=== PATIENT | male | born 2000 | race Caucasian/White ===

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

== ENCOUNTER 2021-05-18 13:38 | Emergency (ER) | payer OTHER, SELFPAY ==
[2021-05-18 13:52] VITALS: BP 144/84; PULSE 109; RESP 16; TEMP 36.8; O2SAT 99
--- NOTE | 2021-05-18 14:02 | W.ED.UPPEXIN ---
HPI - Extremity Injury (Upper) General: Chief Complaint: Wound/Laceration Stated Complaint: R HAND INJURY Time Seen by Provider: 05/18/21 14:00 Source: patient Mode of arrival: ambulatory Limitations: no limitations History of Present Illness: HPI narrative: Patient is a 20-year-old male here for evaluation of a right finger injury. He states injury happened at work when he got the finger caught between a sprocket in a chain. Patient states the finger got caught and patient then jerked the extremity away causing skin laceration. Patient does not complain of numbness, tingling, loss of sensation. Tetanus is UTD. complaint: injury to: right and finger Onset (ago): hour(s) Place: work Severity: moderate Associated symptoms: Reports no associated symptoms Review of Systems Musc: Reports: extremity pain (R 4-5 fingers); Denies: extremity swelling, joint pain or joint swelling Skin/Breast: Reports: other (laceration/skin avulsion R 5th finger) Neuro: Denies: numbness in extremities or sensory changes PFS ED PFSH: Medical History Healthy adult Physical Exam Const: COMMON NORMALS: no acute distress, average body habitus, patient oriented x3, no limitations, healthy appearing, alert and well nourished Extremity: GENERAL: Yes normal exam except as noted OTHER: mild tenderness to R 4-5 fingers; no swelling or bony deformities noted; patient has a skin avulsion/flap to palmar aspect of R 5th finger starting at PIP joint and extending into palmar pad; no degloving injury noted; digit with normal cap refill and sensory; no nail damage Neuro: COMMON NORMALS: patient oriented x3, moves all extremities, no focal motor deficits and no sensory deficits noted SENSORIUM/ORIENTATION: Yes alert Course Vital Signs: Vital signs: Vital Signs Temperature 98.2 F 05/18/21 13:52 Pulse Rate 109 H 05/18/21 13:52 Respiratory Rate 16 05/18/21 13:52 Blood Pressure 144/84 05/18/21 13:52 Pulse Oximetry 99 05/18/21 13:52 MDM - Extremity Injury (Upper) MDM Narrative: Medical decision making narrative: Patient refuses any form of repair/sutures. Wound was soaked in Betadine and irrigated. Avulsed skin will be re-approximated over underlying exposed area and finger will be splinted to keep skin flat. Wound care discussed at home. Discussed how avulsed skin may eventually /slough off. Will place on antibiotics. Tetanus UTD. Will have him follow up with Worker's Comp. Imaging Data^: XR R 4-5 finger: Radiologist's impression: [address] [place] [address] XRay Report Signed Patient: Mateo Prado Unit #: [id number] : 2000 Age/Sex: 20 / M ADM Date: 05/18/21 Loc: ER Room/Bed: Attending Dr: Ordering Provider/Ordering MD: Kristi Whittington Date of Service: 05/18/21 Procedure(s): XR finger RT min 2V 35346 Accession Number(s): [id number] Report Number: [id number] WS: [id number] Exam: XR finger RT min 2V 57508 Date/Time of Exam: 05/18/2021 2:38 PM Reason For Exam: lac 5th digit; XR 4-5 digits The fourth and fifth digits*targeted for radiographic evaluation. No fracture or dislocation. No soft tissue foreign bodies are seen. There appears to be a skin laceration of the distal fifth digit. XR/XR finger RT min 2V 22881 IMPRESSION: 1. No bony injury. 2. Skin laceration of the distal fifth finger. Dictated By: García Moseley DO Signed By: García Moseley DO Signed Date/Time: 05/18/21 1501 DD/ 1457 Discharge Plan Discharge Patient Disposition: Home Clinical Impression: Avulsion of skin of finger without complication Qualifiers: Encounter type: initial encounter Qualified Code(s): S61.209A - Unspecified open wound of unspecified finger without damage to nail, initial encounter Condition: Stable Prescriptions: New cephalexin 500 mg capsule 500 mg PO Q6H 7 Days Qty: 28 RF: 0 No Action naproxen 500 mg tablet 500 mg PO BID PRN (Reason: pain) Qty: 20 RF: 0 Discharge Orders: Discharge ED (Routine); Ordered 05/18/21 Ordered By: Kristi Whittington Referrals: Ayaz Fall MD [Primary Care Provider] - Activity Restrictions/Additional Instructions: As we discussed please keep wound clean with warm soap and water. You have refused any form of repair/sutures today. Please try to keep skin flap covering underlying exposed tissue is much as possible. This may eventually /slough off. Monitor for signs of infection such as redness, swelling, red streaking up your hand/arm, fevers, or any other concerns you may have. Please seek medical evaluation if these occur. Please follow-up with Worker's Comp. as directed. Coding Level of Care Code ED Non Destructive Evaluation Manager for Dolores Acosta
--- NOTE | 2021-05-18 14:16 | XR_ITS ---
WS: [id number] Exam: XR finger RT min 2V [id number] Date/Time of Exam: 05/18/2021 2:38 PM Reason For Exam: lac 5th digit; XR 4-5 digits The fourth and fifth digits*targeted for radiographic evaluation. No fracture or dislocation. No soft tissue foreign bodies are seen. There appears to be a skin lacera tion of the distal fifth digit. XR/XR finger RT min 2V 31202 IMPRESSION: 1. No bony injury. 2. Skin laceration of the distal fifth finger.
== END 2021-05-18 16:30 | disposition home or self-care (01) ==
PROVIDERS: Emergency Provider Physician Assistant; PCP Family Medicine
DX: S61.216A Laceration without foreign body of right little finger without damage to nail, initial encounter (principal); W23.0XXA Caught, crushed, jammed, or pinched between moving objects, initial encounter; Y99.0 Civilian activity done for income or pay
CPT/HCPCS: 29130; 73140; 99282; A6446

== ENCOUNTER 2024-11-27 14:13 | Emergency (ER) | payer SELFPAY ==
[2024-11-27 14:24] VITALS: BP 128/79; PULSE 95; RESP 19; TEMP 36.6; O2SAT 94
--- NOTE | 2024-11-27 14:39 | W.ED.UPPEXIN ---
HPI - Extremity Injury (Upper) General: Chief Complaint: Wound/Laceration Stated Complaint: L hand middle and ring finger lac Time Seen by Provider: 11/27/24 14:37 Source: patient Mode of arrival: ambulatory Limitations: no limitations History of Present Illness: Patient is a 24-year-old male who presents to the ED for evaluation of injuries to his left middle and ring fingers that he sustained just prior to arrival after cutting it on a lawnmower blade. Last tetanus unknown. complaint: injury to: left and finger Onset (ago): hour(s) Other Extremity Injury: Left: hand Other injuries: none Place: home Severity: moderate Relieving factors: none Exacerbating factors: none Context: laceration Associated symptoms: Reports no associated symptoms Related Data Previous Rx's ?Medication ?Instructions ?Recorded mupirocin 2 % topical ointment 1 applic topical TID #22 grams 09/15/22 cephalexin 500 mg capsule 500 mg PO Q6H 7 days #28 caps 11/27/24 hydrocodone 5 mg-acetaminophen 325 1 tab PO Q6H PRN pain #14 tabs 11/27/24 mg tablet Allergies Allergy/AdvReac Type Severity Reaction Status Date / Time No Known Allergies Allergy Verified 09/15/22 13:16 Review of Systems Musc: Reports: extremity pain Skin/Breast: Reports: other (laceration) Neuro: Denies: numbness in extremities or sensory changes [facility] ED PFSH: Medical History Healthy adult Physical Exam Const: COMMON NORMALS: no acute distress, average body habitus, no limitations, healthy appearing and well nourished Extremity: COMMON NORMALS: full ROM and capillary refill normal GENERAL: Yes normal exam except as noted LEFT UPPER EXTREMITY: Yes hand & digits OTHER: contusions/superficial lacerations distal L middle/ring fingers; one area closed with a single steri-strip; no tendon involvement; no obvious bony deformities; NV intact Neuro: COMMON NORMALS: moves all extremities, no focal motor deficits and no sensory deficits noted Course Vital Signs: Vital signs: Vital Signs Temperature 97.8 F 11/27/24 14:24 Pulse Rate 95 11/27/24 14:24 Respiratory Rate 19 H 11/27/24 14:24 Blood Pressure 128/79 11/27/24 14:24 Pulse Oximetry 94 11/27/24 14:24 Oxygen Delivery Me thod Room Air 11/27/24 14:24 MDM - Extremity Injury (Upper) Medical Decision Making XR showing avulsion fx L middle distal phlanx and fracture to L ring finger distal phalanx as well. Tetanus updated. Wounds copiously irrigated and dressed. He will be placed in a splint and will follow-up with ortho. Medical Records I reviewed the patient's medical records. XR interpretation done by ED provider, pending radiology final review Discharge Plan Discharge Patient Disposition: Home Clinical Impression: Closed fracture of distal phalanx of left middle finger Qualifiers: Encounter type: initial encounter Fracture alignment: nondisplaced Qualified Code(s): S62.663A - Nondisplaced fracture of distal phalanx of left middle finger, initial encounter for closed fracture Closed fracture of distal phalanx of left ring finger Qualifiers: Encounter type: initial encounter Fracture alignment: nondisplaced Qualified Code(s): S62.665A - Nondisplaced fracture of distal phalanx of left ring finger, initial encounter for closed fracture Finger laceration Qualifiers: Encounter type: initial encounter Finger: unspecified finger Damage to nail status: with damage Foreign body presence: without foreign body Laterality: left Qualified Code(s): S61.319A - Laceration without foreign body of unspecified finger with damage to nail, initial encounter Condition: Stable Prescriptions: New hydrocodone-acetaminophen 5-325 mg tablet 1 tab PO Q6H PRN (Reason: pain) Qty: 14 0RF cephalexin 500 mg capsule 500 mg PO Q6H 7 Days Qty: 28 0RF Discontinued sulfamethoxazole-trimethoprim [Bactrim DS] 800-160 mg tablet 1 tab PO BID 10 Days Qty: 20 0RF No Action mupirocin 2 % ointment 1 applic topical TID Qty: 22 0RF Discharge Orders: Discharge ED (Routine); Ordered 11/27/24 Ordered By: Kristi Whittington Referrals: Ayaz Fall MD [Primary Care Provider, Family Practice] Patient Instructions: Laceration (DC), Finger Fracture (ED), Opioid Safety, Pain Management Activity Restrictions/Additional Instructions: As we discussed, please keep wounds clean with warm soap and water at home. Monitor for signs of infection such as redness, swelling, streaking up your hand, drainage, or any other concerns you may have. Please seek medical re-evaluation if these occur. You need to stay in your splint until seen by orthopedics. Case management should reach out to you this week to help set you up with this follow-up appointment. Print Language: Turkish Coding Level of Care Code ED [employer] Head Inspector And Adjuster for Dolores Acosta
--- NOTE | 2024-11-27 14:46 | XRR_ITS ---
PROCEDURE INFORMATION: Exam: XR Left Finger(s) Exam date and time: 11/27/2024 2:51 PM Age: 24 years old Clinical indication: Injury or trauma; Other: Laceration; Left; Middle finger and ring finger; Additional info: Ring/middle fingers; Trauma/lac TECHNIQUE: Imaging protocol: Radiologic exam of the left fingers. Views: Minimum 2 views. COMPARISON: No relevant prior studies available. FINDINGS: Bones/joints: Bony cortical disruption is noted along the dorsal lateral aspect of the 4th/ring finger digit. Also observed is trace chip like fracturing along the lateral aspect of the base of the distal phalanx of the 3rd or middle finger digit. Soft tissues: Laceration soft tissue abnormalities are noted particularly along the dorsal aspect of the 4th/ring finger digit and best seen on the lateral projection. No discrete radiopaque foreign body can be appreciated. XR/XR finger LT min 2V [id number] IMPRESSION: Osseous/bony cortical disruption involving in particular the distal phalanx of the 4th/ring finger digit and I suspect to a trace degree along the lateral base of the distal phalanx of the middle finger digit.
[2024-11-27] MEDS: tetanus-dipt-pertussis 0.5 mL SDV IM (15:34)
--- NOTE | 2024-11-29 07:28 | DCPLANNER ---
messaged ortho for er f/u
== END 2024-11-27 15:30 | disposition home or self-care (01) ==
PROVIDERS: Emergency Provider Physician Assistant; PCP Family Medicine
DX: S62.663A Nondisplaced fracture of distal phalanx of left middle finger, initial encounter for closed fracture (principal); S62.665A Nondisplaced fracture of distal phalanx of left ring finger, initial encounter for closed fracture; S61.319A Laceration without foreign body of unspecified finger with damage to nail, initial encounter; W28.XXXA Contact with powered lawn mower, initial encounter
CPT/HCPCS: 73140; 90471; 90715; 99283; A6446